=== PATIENT | male | born 1985 | race Caucasian/White ===

== ENCOUNTER 2024-03-29 16:57 | Emergency (ER) | payer OTHER ==
[~2024-03-29] VITALS: Ht 167.6 cm; Wt 73.0 kg
[2024-03-29 17:00] VITALS: BP 142/87; PULSE 95; TEMP 98.3; O2SAT 100
[2024-03-29 19:00] VITALS: RESP 16
[2024-03-29] MEDS: IBUPROFEN 600MG TABLET PO NR (19:02)
== END 2024-03-29 19:38 | disposition home or self-care (01) ==
LOC: ER 16:57
DX: S93.104A Unspecified dislocation of right toe(s), initial encounter (principal); V19.9XXA Pedal cyclist (driver) (passenger) injured in unspecified traffic accident, initial encounter; Y93.89 Activity, other specified; Y92.89 Other specified places as the place of occurrence of the external cause; Y99.8 Other external cause status
CPT/HCPCS: 28495; 73630; 73660; 99284

== ENCOUNTER 2025-03-28 16:41 | Emergency (ER) | payer OTHER ==
[~2025-03-28] VITALS: Ht 180.3 cm; Wt 77.1 kg
[2025-03-28 16:51] VITALS: O2SAT 98
[2025-03-28 16:56] VITALS: BP 128/83; PULSE 96; RESP 16; TEMP 36.9; O2SAT 98
== END 2025-03-28 17:10 | disposition home or self-care (01) ==
LOC: ER 16:41
DX: L65.9 Nonscarring hair loss, unspecified (principal); Z76.0 Encounter for issue of repeat prescription
CPT/HCPCS: 99281